=== PATIENT | male | born 1960 | race Caucasian/White ===

== ENCOUNTER 2020-03-17 12:41 | Outpatient (REF) | payer BC, SELFPAY ==
[2020-03-17 14:02] LABS: Calculated LDL 114 mg/dL (<100); Cholesterol 184 mg/dL (<200); HDL Cholesterol 58 mg/dL (40-60); Triglyceride 63 mg/dL (<150)
== END 2020-03-17 13:01 ==
LOC: NCHCN 12:41
PROVIDERS: PCP Internal Medicine; Visit Provider Internal Medicine
DX: Z00.00 Encounter for general adult medical examination without abnormal findings (principal); Z13.220 Encounter for screening for lipoid disorders
CPT/HCPCS: 80061

== ENCOUNTER 2020-05-16 15:16 | Outpatient (REF) | payer BC, SELFPAY ==
[2020-05-17 12:00] LABS: COVID-19 RT-PCR UVMMC Result Negative (Negative)
== END 2020-05-16 15:17 | disposition home or self-care (01) ==
LOC: NCHCN 15:16
PROVIDERS: PCP Internal Medicine; Visit Provider Internal Medicine
DX: Z20.822 Contact with and (suspected) exposure to COVID-19 (principal)
CPT/HCPCS: U0003

== ENCOUNTER 2020-05-28 14:06 | Outpatient (REF) | payer BC, SELFPAY ==
[2020-05-30 12:32] LABS: COVID-19 RT-PCR UVMMC Result Negative (Negative)
== END 2020-05-28 14:07 | disposition home or self-care (01) ==
LOC: NCHCN 14:06
PROVIDERS: PCP Internal Medicine; Visit Provider Internal Medicine
DX: Z20.822 Contact with and (suspected) exposure to COVID-19 (principal)
CPT/HCPCS: U0003

== ENCOUNTER 2020-06-09 14:47 | Outpatient (REF) | payer BC, SELFPAY ==
[2020-06-09 21:43] LABS: Abs Immature Grans 0.03 10^3/uL (0.0-0.06); Absolute Basophil Count 0.03 10^3/uL (0.0-0.2); Absolute Eosinophil Count 0.15 10^3/uL (0.0-0.7); Absolute Lymphocyte Count 1.34 10^3/uL (1.2-3.4); Absolute Monocyte Count 0.61 10^3/uL (0.1-0.8); Absolute Neutrophil Count 4.35 10^3/uL (1.2-6.7); Basophils % 0.5; Eosinophils % 2.3; HCT 47.4 % (40.0-50.0); HGB 15.5 g/dL (13.5-17.5); Immature Grans % 0.5; Lymphocytes % 20.6; MCH 29.8 pg (27.0-33.0); MCHC 32.7 % (32.0-36.0); MPV 9.5 fL (8.0-11.0); Monocytes % 9.4; Neutrophils % 66.7; Nucleated RBC 0 %; Platelet Count 249 10^3/uL (130-400); RBC 5.21 10^6/uL (4.36-5.78); RDW 12.3 % (11.8-14.1); RDW-SD 41.1 fL; WBC 6.51 10^3/uL (4.4-10.8)
[2020-06-09 21:51] LABS: ESR 5 mm//hr (0-20)
[2020-06-09 21:52] LABS: ALT 32 U/L (16-63); AST 20 U/L (15-37); Albumin 4.1 g/dL (3.4-5.0); Alkaline Phosphatase 85 U/L (46-116); Anion Gap 9.2 mmol/L (3-11); BUN 19 mg/dL (7-18); Bilirubin, Total 0.4 mg/dL (0.2-1.0); CO2 26.8 mmol/L (21.0-32.0); CREATININE 1.1 mg/dL (0.70-1.30); Chloride 104 mmol/L (98-107); Glucose 93 mg/dL (74-106); Potassium 4.4 mmol/L (3.5-5.1); Sodium 140 mmol/L (136-145); Total Protein 7.1 g/dL (6.4-8.2)
[2020-06-09 22:03] LABS: LDH 165 U/L (85-227)
== END 2020-06-09 14:48 | disposition home or self-care (01) ==
LOC: NCHCN 14:47
PROVIDERS: PCP Internal Medicine; Visit Provider Internal Medicine
DX: R22.9 Localized swelling, mass and lump, unspecified (principal)
CPT/HCPCS: 80053; 85652; 83615; 85025

== ENCOUNTER 2020-10-16 08:31 | Outpatient (REF) | payer BC, SELFPAY ==
[2020-10-17 10:35] LABS: COVID-19 RT-PCR UVMMC Result Negative (Negative)
== END 2020-10-16 08:32 | disposition home or self-care (01) ==
LOC: NCHCN 08:31
PROVIDERS: PCP Internal Medicine; Visit Provider Family Medicine
DX: Z20.822 Contact with and (suspected) exposure to COVID-19 (principal)
CPT/HCPCS: U0003

== ENCOUNTER 2020-12-24 02:05 | Outpatient (CLI) | payer BC, SELFPAY ==
[2020-12-24 10:12] LABS: Source Nasal/Nares
[2020-12-24 13:54] LABS: COVID-19 PCR Negative (Negative)
== END 2020-12-24 02:06 | disposition home or self-care (01) ==
LOC: LBO 02:05
PROVIDERS: PCP Family Medicine; Visit Provider Surgery
DX: Z20.822 Contact with and (suspected) exposure to COVID-19 (principal); Z01.818 Encounter for other preprocedural examination
CPT/HCPCS: 87635

== ENCOUNTER 2020-12-26 09:56 | Day surgery (SDC) | payer BC, SELFPAY ==
--- NOTE | 2020-12-25 13:32 | W.COLOREPORT ---
Colonoscopy Report Date of procedure: 12/26/20 Pre-op diagnosis general: +fam hx of CRC Post-op diagnosis procedure note: other (diverticula) Surgeon: Keiry Soto Anesthesia Type: General:No Airway Pathology: none sent Complications: None Disposition: same day Prep: Miralax/Dulcolax Retraction Time: 8 mins Procedure Description: After informed consent was obtained the patient was taken to the procedure room and placed in a left decubitous position. Monitors were applied and a time out was done. The patients name, date of , procedure, allergies to medications and metal in their body was reviewed. The patient was then sedated. Once sedated and comfortable a rectal exam was done. External exam was normal. Internal exam revealed a normal sphincter tone and no palpable masses. The scope was then introduced and retrofelexed. internal hemorrhoids were identified. The scope was then advanced to the cecum difficulty. The TI and appendiceal orifice were identified. The prep was adequate- the jacome were still coated w/ stool. This was extensively lavaged, but lesions <5mm could have been missed. The scope was then slowly retracted over 8 minutes back into the rectum. There are no polyp or AVM's. There are a few diverticula noted in the sigmoid colon. There are no signs of active infection or bleeding. No polyps are visulized today. The scope was removed and the patient was woken up and taken back to Same day surgery in stable condition. The patient tolerated the procedure well and there were no immediate complications. Follow up: The patient should follow up in 5 years unless they develop changes in bowel habits or other new gastrointestinal complaints.
--- NOTE | 2020-12-25 13:33 | PDOC.DSDIS_ITS ---
Discharge Plan Disposition Patient Disposition: HOME Condition: Good Discharge Details Reason For Visit: colon scope Attending Provider: Keiry Soto Primary Care Provider: Nikhil Burris Home Meds and New Rx's Prescriptions: Discontinued bisacodyl [Dulcolax (bisacodyl)] 5 mg tablet,delayed release (DR/EC) 5 mg PO ONCE Qty: 4 RF: 0 polyethylene glycol 3350 17 gram/dose powder 238 g PO ONCE Qty: 238 RF: 0 Discharge Instructions Additional Instructions: DSU Colonoscopy Post- Op Instructions Instructions for Everyone who is given Anesthesia: For your safety, please do the following for the next twenty-four (24) hours: *Do Not operate a motor vehicle (car, truck, motorcycle, etc.) *Do Not drink alcoholic beverages or use any recreational drugs for the first 24 hours or while taking pain medications. The medications in your body may have a reaction that can be dangerous. *Do Not make any important decisions or sign any important papers. Findings:diverticula- see handout No polyps Follow up:repeat scope in 5 yrs time 1. No lifting over 20 pounds or strenuous activity for the first 24 hours after your procedure. After 24 hours there are no restrictions on your activity but you may feel fatigued for a few days. 2. After you arrive home you may have a light meal and return to your normal diet as you can tolerate it without feeling sick to your stomach. 3. You may have a bloated, gaseous feeling in your belly (abdomen) after a colonoscopy. Passing gas and belching will help. Walking or lying down on your left side with your knees flexed may relieve the discomfort. Call the office at [phone] (Office) or [phone] (Hospital) right away if you notice any of the following: a.Vomiting of blood or ?coffee ground stools?. b.Rectal bleeding 1Tbsp, blood clots or continuous bleeding. c.Severe belly (abdominal) pain. d.A hard distended belly (abdomen) and an inability to pass gas. 4. Please don?t expect to have a normal BM (bowel movement) for 2-3 days after your procedure. 5. If there are questions regarding the findings of your procedure, please contact your doctor 6. If you are unable to contact your doctor with a problem, contact the hospital at [phone]. 7. Continue all your regular medications unless directed otherwise. I understand the above instructions and have no questions. Signature of Patient or Adult Escort Name of Responsible Adult Escort Signature of Nurse Date/Time Activity:: see above Diet:: see above Discharge Orders Discharge Orders: Discharge Order (Routine); Ordered 12/25/20 Ordered By: Keiry Soto DS: Diagnosis Discharge Diagnosis (1) Family history of colon cancer in father: Status: Inactive
[2020-12-26 10:22] VITALS: BP 139/86; PULSE 71; RESP 16; TEMP 36.4; O2SAT 100
--- NOTE | 2020-12-26 10:37 | W.ANESPRE ---
General Info Date of Service Date Performed: 12/26/20 Height: 5 ft 9 in Weight: 91.6 kg Body Mass Index (BMI): 29.8 Surgical Procedure: Operation Date: 12/26/20 10:50 Proposed Procedures Side Surgeon p Colonoscopy Keiry Soto, Meds Allergies and Home Medications Allergies Allergy/AdvReac Type Severity Reaction Status Date / Time sulfamethoxazole Allergy Unknown facial Unverified 12/26/20 10:30 [From ] swelling trimethoprim [From ] Allergy Unknown facial Unverified 12/26/20 10:30 swelling Home Medication Medication Instructions Recorded bisacodyl 5 mg tablet,delayed 5 mg PO ONCE #4 tab 12/11/20 release polyethylene glycol 3350 17 238 g PO ONCE #238 g 12/11/20 gram/dose oral powder Current Visit Medications: Current Medications Generic Name Dose Route Start Last Admin Trade Name Freq PRN Reason Stop Dose Admin Hyoscyamine Sulfate 0.125 mg 12/25/20 13:32 Hyoscyamine 0.125 Mg Sl/Oral/Chew SL DIRECTED PRN Ringer's Solution 1,000 mls @ 80 mls/hr 12/26/20 06:00 IV 01/24/21 23:59 [facility] IV Miscellaneous Supplies 1 each 12/26/20 06:00 Iv Access IV 01/24/21 23:59 DIRECTED SADIQ Ondansetron HCl 4 mg 12/25/20 13:32 Ondansetron 4 Mg/2 Ml Vial IVP Q4H PRN PRN Nausea / Vomiting Sodium Chloride 0 ml 12/26/20 06:00 Normal Saline Flush 10 Ml Syr IV 01/24/21 23:59 PRN PRN Sodium Chloride 0 ml 12/26/20 06:00 Normal Saline 10 Ml Vial IJ 01/24/21 23:59 DIRECTED PRN Sterile Water 0 ml 12/26/20 06:00 Water,Injection,Sterile 10 Ml Vial IJ 01/24/21 23:59 DIRECTED PRN PFSH Medical History Medical History Axillary mass Elbow pain, left Family history of colon cancer in father stage 3 History of exposure to infectious disease Obesity Tinnitus Surgical History Surgical History History of colonoscopy (~12/28/13) Tobacco Smoking/Tobacco Use Status: Never Alcohol Alcohol Intake: current Alcohol intake frequency: a few times a month Substance Use Substance use: Never Substance use type: does not use Vital Signs and Lab Results Vital Signs Most Recent Vital Signs in EMR: Most Recent Vital Signs Temp Pulse Resp BP Pulse Ox 36.4 C L 71 16 139/86 100 12/26/20 10:22 12/26/20 10:22 12/26/20 10:22 12/26/20 10:22 12/26/20 10:22 Lab Results Blood Type / Crossmatch: No Data to Display Complete Blood Count: No Data to Display Complete Metabolic Panel: No Data to Display Liver Function Panel: No Data to Display Coagulation Panel: No Data to Display Cardiac Panel: No Data to Display Arterial Blood Gas: No Data to Display Venous Blood Gas: No Data to Display Pancreas Panel: No Data to Display Thyroid Panel: No Data to Display Infectious Disease: Coronavirus (COVID-19)(PCR) Negative (Negative) 12/24/20 08:48 12/24/20 Coronavirus 2019 Source Nasal/Nares 12/24/20 08:48 12/24/20 Blood Cultures: No Data to Display Toxicology Panel: No Data to Display Anesthesia Assessment and Plan Anesthesia History Personal History: No History of Anesthesia Complications Family History: No Family History of Anesthesia Complications Exercise Tolerance Exercise Tolerance: Metabolic Equivalents>4 Pertinent Negatives Pertinent Negatives: No Symptoms of GERD, No Major Cardiovascular Symptoms or Complaints, No Major Pulmonary Symptoms or Complaints and No History of CVA/TIA Cardiac & Pulmonary Exam Cardiac Exam: Normal S1/S2 Heart Sounds Pulmonary Exam: Clear Bilateral Breath Sounds Airway Exam Known Difficult Airway: No Mallampati Class: 2 Mouth Opening: Normal (> 3cm) Thyromental Distance: Greater than 3 cm Neck Range of Motion: Full ROM Neck Circumference: Normal Teeth Condition: Normal Dentition ASA Classification ASA Score: ASA 1 Emergency Case?: No NPO Status NPO Status: NPO Clears >2 hours, Solids >8 hours Anesthesia Plan Resuscitation Status: Full Code Anesthesia Technique: General Anesthesia Airway Planned: Natural Airway Monitors Used: Standard Monitors
[2020-12-26] MEDS: Lactated Ringers 1,000 ML 80 ML IV (10:40)
[2020-12-26 10:41] VITALS: BMI 29.8
[2020-12-26 11:24] VITALS: BP 105/83; PULSE 80; RESP 18; TEMP 36.6; O2SAT 95
[2020-12-26 11:50] VITALS: BP 136/94; PULSE 64; RESP 16; TEMP 36.5; O2SAT 96
--- NOTE | 2020-12-26 12:04 | W.ANESPOSTOP ---
Postoperative Evaluation Date, Time and Location Date Performed: 12/26/20 Time Performed: 11:50 Patient Location: Day Surgery Unit Vital Signs Most Recent Imported Vital Signs: Most Recent Vital Signs Temp Pulse Resp BP Pulse Ox 36.5 C 64 16 136/94 H 96 12/26/20 11:50 12/26/20 11:50 12/26/20 11:50 12/26/20 11:50 12/26/20 11:50 Pain Score Most Recent Pain Score: Most Recent Pain Score Pain Level 0 12/26/20 11:50 Assessment Mental Status: Awake (Alert & Oriented to Patient Baseline) Airway and Respiratory Function: Patent airway with normal (patient baseline) respiratory exam Cardiovascular Function: Hemodynamically Stable Hydration Status: Adequately Hydrated Nausea & Vomiting: No Nausea or Vomiting Pain: Pt. Denies Any Pain Peripheral Nerve Block: Patient did not receive a nerve block
== END 2020-12-26 12:34 | disposition home or self-care (01) ==
PROVIDERS: PCP Family Medicine; Visit Provider Surgery
PROC: 0DJD8ZZ Inspection of Lower Intestinal Tract, Via Natural or Artificial Opening Endoscopic (ICD-10-PCS; CPT 45378; principal; 2020-12-26 10:45)
DX: Z12.11 Encounter for screening for malignant neoplasm of colon (principal); Z80.0 Family history of malignant neoplasm of digestive organs; K57.30 Diverticulosis of large intestine without perforation or abscess without bleeding
CPT/HCPCS: 45378; J2001

== ENCOUNTER 2022-10-04 10:15 | Outpatient (REF) | payer BC, SELFPAY ==
[2022-10-04 15:49] LABS: Anion Gap 9.9 mmol/L (3-11); BUN 13 mg/dL (7-18); CO2 29.1 mmol/L (21.0-32.0); CREATININE 1.3 mg/dL (0.70-1.30); Calcium 9.8 mg/dL (8.5-10.1); Chloride 104 mmol/L (98-107); Estimated GFR 62.89 (mL/min/1.73m2); Glucose 106 mg/dL (74-106); Potassium 4.9 mmol/L (3.5-5.1); Sodium 143 mmol/L (136-145)
[2022-10-05 10:20] LABS: Hepatitis C Ab w Rflx HCV PCR Negative (Negative)
[2022-10-05 10:27] LABS: HIV-1/2 Ag & Ab Screen Negative (Negative)
== END 2022-10-04 10:16 | disposition home or self-care (01) ==
LOC: NCHCN 10:15
PROVIDERS: PCP Family Medicine; Visit Provider Family Medicine
DX: Z00.00 Encounter for general adult medical examination without abnormal findings (principal); E66.9 Obesity, unspecified; Z11.4 Encounter for screening for human immunodeficiency virus [HIV]; Z11.59 Encounter for screening for other viral diseases
CPT/HCPCS: 80048; 86803; 87389

== ENCOUNTER 2023-10-12 20:51 | Outpatient (REF) | payer BC, SELFPAY ==
[2023-10-12 15:20] LABS: Anion Gap 12.3 mmol/L (3-11); BUN 18 mg/dL (7-18); CO2 23.7 mmol/L (21.0-32.0); CREATININE 1.1 mg/dL (0.70-1.30); Calcium 9.4 mg/dL (8.5-10.1); Calculated LDL 98 mg/dL (<100); Chloride 103 mmol/L (98-107); Cholesterol 173 mg/dL (<200); Estimated GFR 76.37 (mL/min/1.73m2); Glucose 104 mg/dL (74-106); HDL Cholesterol 59 mg/dL (40-60); Potassium 4.2 mmol/L (3.5-5.1); Sodium 139 mmol/L (136-145); Triglyceride 80 mg/dL (<150)
--- OUTSIDE RECORDS SUMMARY | 2023-10-12 20:53 | XMS_ITS | Clinical Summary ---
Author Organization [facility] Address [address] [place] [address] Care Team Providers Care Sonoscope Operator Name Role Phone Gregory Cates MD Primary Care Provider Allergies Active Allergy Reactions Criticality Noted Date Comments Sulfamethoprim Swelling 06/02/2017 Medications Medication Sig Dispensed Refills Start Date End Date Status ibuprofen (MOTRIN) 200 mg tablet Take 200 mg by mouth every 6 hours. Active Encounters Date Type Department Care Team Description 10/12/2023 Lab Requisition [facility] Pathology & Laboratory Medicine - [facility] [address] [place] [address] Outr Resulting Lab, Provider from Last 3 Months Surgical History Surgery Date Site/Laterality Comments BREAST SURGERY Social History Tobacco Use Types Packs/Day Years Used Date Smoking Tobacco: Every Day Tobacco Cessation:Ready to Q uit: No Alcohol Use Standard Drinks/Week Comments Yes 0 (1 standard drink = 0.6 oz pur e alcohol) Interpersonal Safety Answer Date Record ed Physically Hurt Never 10/08/2019 Verbally Threaten Not on file 10/08/2019 Sex and Gender Information Value Date Recorded Sex Assigned at Not on file Gender Identity Not on file Sexual Orientation Not on file Obstetrics History Plan of Treatment Health Maintenance Due Date Last Done Comments Pneumococcal Immunization (1 of 2 - PCV) 1968 RSV Immunization ( o r 60+ Years) (1 - 1-dose 60+ series) 2022 COVID-19 Vaccine ( - 2022-24 season) 2022 Hepatitis C Screen Completed 10/04/2022 Procedures Procedure Name Priority Date/Time Associated Diagnosis Comments HEPATITIS C AB W REFLEX TO HCV RNA BY PCR Routine 10/04/2022 8:15 EDT from Last 3 Months or Most Recently Relevant to Health Maintenance Results * HEPATITIS C AB W REFLEX TO HCV RNA BY PCR (10/04/2022 8:15 EDT) Hep C Antibody Negative Negative 10/05/2022 10:14 EDT [facility] Blood VENOUS BLOOD / Unknown 10/04/2022 8:15 EDT 10/04/2022 21:24 EDT Provider Outr Resulting Lab CHEMISTRY & BLOOD GAS ORDERABLES [facility] [address] [place] [address] from Last 3 Months or Most Recently Relevant to Health Maintenance Care Teams Sonoscope Operator Relationship Specialty Start Date End Date Gregory Cates MD [address] [place], [place] [id number] PCP - General 07/30/15
--- OUTSIDE RECORDS SUMMARY | 2023-10-12 20:53 | XMS_ITS | Data Portability ---
Author Organization [place] - [employer], [facility], [facility] Address [address] [place] [address] Care Team Providers Care Digital Media Associate Name Role Phone NICA MAURICIO Referring Provider [phone] Assessment No assessment recorded. Plan of Treatment Reminders Order Date Submit Date Provider Last Modified By Organization Details Last Modified Time Details Appointments None recorded. Lab culture, aerobic 2022 023 [facility], [address] [place], [address], 11:12:51 Referral None recorded. Procedures None recorded. Surgeries None recorded. Imaging None recorded. Medication Orders cephalexin 500 mg capsule 2022 023 [id number], [address], 18:00:51 Patient TargetsNo targets recorded. Patient Instructions Encounter Date Encounter Id Patient Instructions Last Modified By Organization Details Last Modified Time 06/11/2022 [id number] Will call with culture. [email or web address] Not available 06/11/2022 18:01:02 Patient understands instructions and will seek medical attention if symptoms worsen as directed. [email or web address] Not available 06/11/2022 18:01:06 Reason for Referral None Reported. Results Created Date Observation Date Name Description Value Unit Range Abnormal Flag LastModifiedBy Organization Detail LastModifiedTime 06/12/19 23 06/15/2022 CULTU RE, AEROB IC BACTE JACOB culture, aerobic bacteria SEE NOTE abnormal Not Available [facility] [address], [place], [address], 06/15/2022 11:12:50 Result Notes None recorded. Procedures Surgical History Date Name Laterality Status Provider Name and Address Organization Details Recorded Time 3 Foreign Body Removal completed Mauricio Farley, DO [address] [facility] [address], [place], [address], [facility], [facility] 06/11/2022 17:58:55 Imaging Results None recorded. Procedure Notes None recorded. Medical Equipment None Reported. Allergies Allergen ID Allergen Name Allergen Category Reaction Reaction Severity Criticality Documentation Date Start Date Code Code System Note Provider Name and Address Organization Details Recorded Time [id number] sulfameth oxazole / trimethop rim medicatio n swelling severe Not available 06/11/2022 26602 RxNorm Olivia riggs [facility], [facility] 17:35:26 Medications Name Sig Start Date Stop Date Status Note LastModified by Organization Details LastModified Time cephalexin 500 mg capsule Take 1 capsule every 8 hours by oral route for 5 days. 023 active Not Available Not Available Not Avai lable Vitals Date Recorded Body temperature Heart rate Oxygen saturation Oxygen saturation in Arterial blood by Pulse oximetry Body height Body mass index (BMI) Body weight Systolic blood pressure Diastolic blood pressure Provider Name and Address Organization Details Last Updated DateTime 3 97.5 [degF] 79 /min 97 % 97 % 175.26 cm 30.9 kg/m2 56609.8 1 g 150 mm[Hg] 84 mm[Hg] Olivia Whatley [facility], [facility] 17:35:06 Social History Question Answer Notes LastModified by Organizat ion Details LastModified Time Tobacco Smoking Status Never Smoker Olivia riggs [facility], [facility] 06/11/2022 17:27:55 Do You Have An Advance Directive? Yes Information not available 06/11/2022 What Is Your Level Of Alcohol Consumption? Moderate Information not available 06/11/2022 Is Blood Transfusion Acceptable In An Emergency? Yes Information not available 06/11/2022 What Is Your Level Of Caffeine Consumption? Moderate Information not available 06/11/2022 What Type Of Diet Are You Following? REGULAR Information not available 06/11/2022 What Is The Highest Grade Or Level Of School You Have Completed Or The Highest Degree You Have Received? [id number] Information not available 06/11/2022 What Is Your Relationship Status? Information not available 06/11/2022 Are You Sexually Active? Yes Information not available 06/11/2022 Do You Or Have You Ever Used Smokeless Tobacco? Never Used Smokeless Tobacco Information not available 06/11/2022 Sex: Male Functional Status Question Answer Note LastModified by Organization D etails LastModified Time What is your exercise level? Moderate Information not available 06/11/2022 Mental Status None recorded. Family History Nothing Reported. Medical History No medical history recorded. Past Encounters Encounter ID Performer Location Encounter Start Date Encounter Closed Date Diagnosis/Indication Diagnosis SNOMED-CT Code [id number] DO JUDITH Batista [facility] [address] [place] [id number] 06/11/2022 17:18:20 06/11/2022 18:15:34 Foreign body in skin of foot [id number] Abscess of skin and/or subcutaneous tissue [id number] Health Concerns Section Related Observation LastModified by Organization Detai ls LastModified Time None Recorded Concern Status LastModified by Organization Details LastModified Time None Recorded Advance Directives Directive Y: Payers Encounter Date Sequence Insurance Name Policy Number Policy Campos Covered Member ID Campos Member ID Guarantor Name 06/11/2022 1 [place] [facility] [id number] [facility] [id number] [facility] Notes Date Note Type Note Provider Name and Address Organization Details Recorded Time 06/11/2022 text/html HPI Notes: Abscess/Cellulitis Reported by patient. Reason for visit: acute complaint Location: left foot (sole under 4th distal metatarsal) Quality: bulging (White blister) Severity: mild Duration: constant Onset/Timing: gradual; several days ago Context: no recent travel; no recent injury; no recent stings/bites Alleviating factors: nothing Aggravating factors: nothing Associated Symptoms: no fever; no chills; no discharge Express Covid Questions Are you feeling sick today? Includes any NEW symptom(s) among those listed previously that are NOT due to another health problem No Have you tested positive for COVID-19 in the past 10 days? No In the last 10 days, have you been exposed to someone who has tested positive for COVID-19? No Imported from [facility] on 06/11/2022 Mauricio Farley, DO [address] [facility] [address], [place], [address], [facility] - [facility], [facility] 06/11/2022 18:02:38
--- OUTSIDE RECORDS SUMMARY | 2023-10-12 20:53 | XMS_ITS | Referral Summary ---
Author Organization [facility] Address [address] [place] [address] Care Team Providers Care Counterintelligence Specialist Name Role Phone Gregory Cates MD Primary Care Provider [phone] Encounters Date Type Department Care Team Description 10/12/2023 Lab Requisition [facility] Pathology & Laboratory Medicine - [facility] [address] [place] [address] Outr Resulting Lab, Provider from Last 3 Months Allergies Active Allergy Reactions Criticality Noted Date Comments Sulfamethoprim Swelling 06/02/2017 Medications Medication Sig Dispensed Refills Start Date End Date Status ibuprofen (MOTRIN) 200 mg tablet Take 200 mg by mouth every 6 hours. Active Social History Tobacco Use Types Packs/Day Years [...] on file Sexual Orientation Not on file Plan of Treatment Not on file Procedures Procedure Name Priority Date/Time Associated Diagnosis Comments HEPATITIS C AB W REFLEX TO HCV RNA BY PCR Routine 10/04/2022 8:15 EDT from Last 3 Months or Most Recently Relevant to Health Maintenance Results * HEPATITIS C AB W REFLEX TO HCV RNA BY PCR (10/04/2022 8:15 EDT) Hep C Antibody Negative Negative 10/05/2022 10:14 EDT [facility] Blood VENOUS BLOOD / Unknown 10/04/2022 8:15 EDT 10/04/2022 21:24 EDT Provider Outr Resulting Lab CHEMISTRY & BLOOD GAS ORDERABLES [facility] [address] [place] [address] from Last 3 Months or Most Recently Relevant to Health Maintenance Care Teams Counterintelligence Specialist Relationship Specialty Start Date End Date Gregory Cates MD [address] [place] [address] PCP - General 07/30/15
--- OUTSIDE RECORDS SUMMARY | 2023-10-12 20:53 | XMS_ITS | Encounter Summary ---
Author Organization [facility] Address [address] [place] [address] Care Team Providers Care Predictive Maintenance Specialist Name Role Phone Gregory Cates MD Primary Care Provider [phone] Encounter Details Date Type Department Care Team (Late st Contact Info) Description 10/04/2022 Lab Requisition [facility] Pathology & Laboratory Medicine - [facility] [address] [place], [place] [address] Outr Resulting Lab, Provider Social History Tobacco Use Types Packs/Day Years Used Date Smoking Tobacco: Every Day Alcohol Use Standard Drinks/Week Comments Yes 0 (1 standard drink = 0.6 oz pur e alcohol) Interpersonal Safety Answer Date Record ed Physically Hurt Never 10/08/2019 Verbally Threaten Not on file 10/08/2019 Sex and Gender Information Value Date Recorded Sex Assigned at Not on file Gender Identity Not on file Sexual Orientation Not on file documented as of this encounter Plan of Treatment Not on file documented as of this encounter Procedures Procedure Name Priority Date/Time Associated Diagnosis Comments HIV 1/2 ANTIGEN AND ANTIBODY, 4TH GENERATION Routine 10/04/2022 8:15 EDT documented in this encounter Results * HIV 1/2 ANTIGEN AND ANTIBODY, 4TH GENERATION (10/04/2022 8:15 EDT) HIV 1 and 2 Antibody/p24 Antigen, 4th Generation Negative Negative 10/05/2022 10:22 EDT [facility] Comment:If acute HIV-1 infec tion is suspected in a high risk patient, submit plasma specimen for HIV-1 RNA quantitation test. Blood VENOUS BLOOD / Unknown 10/04/2022 8:15 EDT 10/04/2022 21:24 EDT Narrative [facility] - 10/05/2022 10:22 EDT Fourth Generation assay performed on the Siemens CTMGaur XPT. Provider Outr Resulting Lab IMMUNOLOGY A ND SEROLOGY ORDERABLES Performing Organization Address City/State/[facility] Co de Phone Number [facility] [address] [place] [address] documented in this encounter Visit Diagnoses Not on filedocumented in this encounter Care Teams Predictive Maintenance Specialist Relationship Specialty Start Date End Date Gregory Cates MD [address] [place], [place] [phone] PCP - General 07/30/15 documented as of this encounter
--- OUTSIDE RECORDS SUMMARY | 2023-10-12 20:53 | XMS_ITS | Encounter Summary ---
Author Organization [facility] Address [address] [place] [address] Care Team Providers Care Mechanical Design Engineer Facilities Name Role Phone Gregory Cates MD Primary Care Provider [phone] Encounter Details Date Type Department Care Team (Late st Contact Info) Description 2020 Lab Requisition [facility] Pathology & Laboratory Medicine - [address] [id number] Outr Resulting Lab, Provider Social History Tobacco [...] Procedure Name Priority Date/Time Associated Diagnosis Comments ZZCOVID-19 TEST [facility] PCR Today 2020 10:30 EST COVID-19 TESTING Routine 2020 10:3 0 EST documented in this encounter Results * COVID-19 TEST [facility] PCR (2020 10:30 EST) Swab ENTIRE NASOPHARYNX / Unknown 2020 10:30 EST 2020 21:04 EST Provider Outr Resulting Lab MICROBIOLOGY - GENERAL ORDERABLES [facility] [address] [place] [address] * COVID-19 TESTING (2020 10:30 EST) COVID-19 rt-PCR Result Negative Negative 05/17/2020 11:54 EST [facility] Comment: This test has not been FDA cleared or approved. This test has been authorized by FDA under an EUA for use by authorized laboratories. This test has been authorized only for detection of nucleic acid from 2019-nCoV, not for any other viruses or pathogens. This test is only authorized for the duration of the declaration that circumstances exist justifying the authorization of emergency use of in vitro diagnostic tests for detection and/or diagnosis of 2019-nCoV under section 564(b)(1) of Act, 21 U.S.C ?? 360bbb-3(b) (1), unless the authorization is terminated or revoked sooner. Negative results do not preclude 2019-nCoV infection and should not be used as the sole basis for treatment or other patient management decisions. Negative results must be combined with clinical observations, patient history, and epidemiological information. Testing was performed using the segundo SARS-CoV-2 assay ([employer] on the Segundo 6800 System Performing Lab [facility] [address] [facility] Lab 05/17/2020 11:54 EST [facility] Swab 2020 10:3 0 EST 2020 21:04 EST Provider Outr Resulting Lab MICROBIOLOGY - GENERAL ORDERABLES [facility] [address] [place] [address] documented in this encounter Visit Diagnoses Not on filedocumented in this encounter Care Teams Mechanical Design Engineer Facilities Relationship Specialty Start Date End Date Gregory Cates MD [address] [place], [place] [id number] PCP - General 07/30/15 documented as of this encounter
--- OUTSIDE RECORDS SUMMARY | 2023-10-12 20:53 | XMS_ITS | Encounter Summary ---
Author Organization [facility] Address [address] [place] [address] Care Team Providers Care Clinical Support Manager Name Role Phone Gregory Cates MD Primary Care Provider [phone] Encounter Details Date Type Department Care Team (Late st Contact Info) Description 10/12/2023 Lab Requisition [facility] Pathology & Laboratory Medicine - [facility] [address] [place] [address] Outr Resulting Lab, Provider Social History Tobacco [...] as of this encounter Plan of Treatment Scheduled Orders Name Type Priority Associated Diagnoses Orde r Schedule PSA TOTAL, DIAGNOSTIC Lab Routine Ord ered: 10/12/2023 documented as of this encounter Visit Diagnoses Not on filedocumented in this encounter Care Teams Clinical Support Manager Relationship Specialty Start Date End Date Gregory Cates MD [address] [place] [address] PCP - General 07/30/15 documented as of this encounter
--- OUTSIDE RECORDS SUMMARY | 2023-10-12 20:53 | XMS_ITS | Encounter Summary ---
Author Organization [facility] Address [address] [place] [address] Care Team Providers Care Electronic Engineering Technician Name Role Phone Gregory Cates MD Primary Care Provider [phone] Encounter Details Date Type Department Care Team (Late st Contact Info) Description 10/04/2022 Lab Requisition [facility] Pathology & Laboratory Medicine - [address] [phone] Outr Resulting Lab, Provider Social History Tobacco [...] RNA BY PCR Routine 10/04/2022 8:15 EDT documented in this encounter Results * HEPATITIS C AB W REFLEX TO HCV RNA BY PCR (10/04/2022 8:15 EDT) Hep C Antibody Negative Negative 10/05/2022 10:14 EDT [facility] Blood VENOUS BLOOD / Unknown 10/04/2022 8:15 EDT 10/04/2022 21:24 EDT Provider Outr Resulting Lab CHEMISTRY & BLOOD GAS ORDERABLES [facility] [address] [place] [address] documented in this encounter Visit Diagnoses Not on filedocumented in this encounter Care Teams Electronic Engineering Technician Relationship Specialty Start Date End Date Gregory Cates MD [address] [place] [address] PCP - General 07/30/15 documented as of this encounter
--- OUTSIDE RECORDS SUMMARY | 2023-10-12 20:53 | XMS_ITS | Encounter Summary ---
Author Organization [facility] Address [address] [place] [address] Care Team Providers Care Private Eye Name Role Phone Gregory Cates MD Primary Care Provider [phone] Reason for Visit * Reason Comments New Patient Visit Tinnitus * Consult (Routine) - Closed Specialty Diagnoses / Procedures Referred By Arelis jade Referred To Contact Otolaryngology Diagnoses Tinnitus Gregory Cates MD [address] [place] [address] Referral ID Status Reason Start Date Expiration Date V isits Requested Visits Authorized [id number] Closed Specialty Services Required 1 1 Encounter Details Date Type Department Care Team (Late st Contact Info) Description 06/02/2017 13:35 EDT Office Visit [facility] ENT- [address] [address] Narcisa Valadez MD [address] [place] [address], [address] [place] [id number] Tinnitus of both ears (Primary Dx); Sensorineural hearing loss (SNHL) of both ears Social History Tobacco Use Types Packs/Day Years Used Date Smoking Tobacco: Every Day Tobacco Cessation:Ready to Q uit: No Alcohol Use Standard Drinks/Week Comments Yes 0 (1 standard drink = 0.6 oz pur e alcohol) Sex and Gender Information Value Date Recorded Sex Assigned at Not on file Gender Identity Not on file Sexual Orientation Not on file documented as of this encounter Progress Notes * Narcisa Valadez MD - 06/02/2017 1335 EDT Mr Philippe is a 57-year-old gentleman who is here today in consultation from Dr Gregory Cates for tinnitus and hearing loss. He has noted that he has had tinnitus for 5 years. It became significantly worse in January. It is constant. It is in both ears. Initially it was a pulsing sensation, butnow is constant, high-pitched sound. He has some decreased hearing, which is worse when there is background noise. He sometimes finds that he feels like he is reading lips. He denies any dizziness orvertigo. He has no history of head trauma. He has not had any recent change in his medications. He has had no increased stress or fatigue in his life. He finds that sometimes it is difficult to fall asleep because of the tinnitus in he uses music when he is going to sleep which oftentimes is helpful. 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 He is not exposed to noise currently. PAST MEDICAL HISTORY: He denies other medical problems. PAST SURGERY: Appendectomy. FAMILY HISTORY: Unremarkable. He does not smoke, drinks 1 drink a week. He works as a web development manager. Review of systems was performed and notable for fever, nasal congestion, sore throat and cough. ALLERGIES: He is allergic to SEPTRA. PHYSICAL EXAM: Generally, he is in no distress. He is well groomed. His face reveals symmetric movement and is otherwise normal appearing. His voice is of normal quality. His nose externally is unremarkable. Internally he has normal mucosa. His mouth and oropharynx is within normal limits without lesions. Dentition is unremarkable. His neck reveals no masses or adenopathy. Salivary glands are normal to palpation. His ears including canals, TMs and auricles are within normal limits. An audiogram is done and this reveals a mild high-frequency sensorineural hearing loss at 4000 Hz in both ears. He has good discrimination. ASSESSMENT: Mild sensorineural hearing loss consistent with his noise exposure. He has tinnitus, which is probably also related to this as well. All this was discussed with him. I did not recommend any amplification at this time for his hearing loss. He is already using masking for the tinnitus Destini did not have any other really good suggestions at this point. He will see how things go and return as needed. documented in this encounter Plan of Treatment Scheduled Orders Name Type Priority Associated Diagnoses Orde r Schedule HEARING EVALUATION Audiology Routine Tinnitus of both ears Sensorineural hearing loss (SNHL) of both ears Ordered: 06/02/2017 documented as of this encounter Procedures Procedure Name Priority Date/Time Associated Diagnosis Comments AUDIOGRAM - SCANNED 06/03/2017 11:17 EDT documented in this encounter Results * AUDIOGRAM - SCANNED (06/03/2017 11:17 EDT) 06/03/2017 11:1 7 EDT Scan 2 [facility] PROCEDURE/MINOR ALMAZ GICAL ORDERABLES documented in this encounter Visit Diagnoses Diagnosis Tinnitus of both ears- Primary Unspecified tinnitus Sensorineural hearing loss (SNHL) of both ears documented in this encounter Historical Medications * This list may reflect changes made after this encounter. Medication Sig Dispensed Refills Start Date End Date ibuprofen (MOTRIN) 200 mg tablet Take 200 mg by mouth every 6 hours. added in this encounter Care Teams Private Eye Relationship Specialty Start Date End Date Gregory Cates MD [address] [place] [address] PCP - General 07/30/15 documented as of this encounter
--- OUTSIDE RECORDS SUMMARY | 2023-10-12 20:53 | XMS_ITS | Encounter Summary ---
Author Organization [facility] Address [address] [place] [address] Care Team Providers Care Skip Tender Name Role Phone Gregory Cates MD Primary Care Provider [phone] Encounter Details Date Type Department Care Team (Late st Contact Info) Description 10/16/2020 Lab Requisition [facility] Pathology & Laboratory Medicine - [address] [address] Outr Resulting Lab, Provider Social History Tobacco [...] Comments ZZCOVID-19 TEST [facility] PCR Today 10/16/2020 7:45 EDT COVID-19 TESTING Routine 10/16/2020 7:45 EDT documented in this encounter Results * COVID-19 TEST [facility] PCR (10/16/2020 7:45 EDT) Swab ENTIRE NASOPHARYNX / Unknown 10/16/2020 7:45 EDT 10/16/2020 20:30 EDT Provider Outr Resulting Lab MICROBIOLOGY - GENERAL ORDERABLES [facility] [address] [place] [address] * COVID-19 TESTING (10/16/2020 7:45 EDT) COVID-19 rt-PCR Result Negative Negative 10/17/2020 10:32 EDT [facility] Comment: This test [...] performed using the segundo SARS-CoV-2 assay ([employer] on the Segundo 6800 System Performing Lab [address] [facility] Lab 10/17/2020 10:32 EDT [facility] Swab 10/16/2020 7:45 EDT 10/16/2020 20:30 EDT Provider Outr Resulting Lab MICROBIOLOGY - GENERAL ORDERABLES [facility] [address] [place] [address] documented in this encounter Visit Diagnoses Not on filedocumented in this encounter Care Teams Skip Tender Relationship Specialty Start Date End Date Gregory Cates MD [address] [place], [place] [id number] PCP - General 07/30/15 documented as of this encounter
--- OUTSIDE RECORDS SUMMARY | 2023-10-12 20:53 | XMS_ITS | Encounter Summary ---
Author Organization [facility] Address [address] [place] [address] Care Team Providers Care Electrical Sign Wirer Name Role Phone Gregory Cates MD Primary Care Provider [phone] Encounter Details Date Type Department Care Team (Late st Contact Info) Description 05/29/2020 Lab Requisition [facility] Pathology & Laboratory Medicine - [address] [address] Outr Resulting Lab, Provider Social History Tobacco [...] Comments ZZCOVID-19 TEST [facility] PCR Today 05/28/2020 13:00 EDT COVID-19 TESTING Routine 05/28/2020 13:0 0 EDT documented in this encounter Results * COVID-19 TEST [facility] PCR (05/28/2020 13:00 EDT) Swab ENTIRE NASOPHARYNX / Unknown 05/28/2020 13:00 EDT 05/29/2020 16:04 EDT Provider Outr Resulting Lab MICROBIOLOGY - GENERAL ORDERABLES [facility] [address] [place] [address] * COVID-19 TESTING (05/28/2020 13:00 EDT) COVID-19 rt-PCR Result Negative Negative 05/30/2020 12:27 EDT [facility] [...] clinical observations, patient history, and epidemiological information. This test was developed and its performance characteristics determined by [facility]. It has not been cleared or approved by the US Food and Drug Administration. FDA does not require this test to go through premarket FDA review. This test is used for clinical purposes. It should not be regarded as investigational or for research. This laboratory is certified under the Clinical Laboratory Improvement Amendments (CLIA) as qualified to perform high complexity clinical laboratory testing. This test is based on the [facility] COVID-19 Emergency Use Authorization (EUA) assay, with minor modification as defined by the FDA Performed on the [employer] 7 Flex RT-PCR System. Performing Lab [facility] Lab 05/30/2020 12:27 EDT [facility] Swab 05/28/2020 13:0 0 EDT 05/29/2020 16:04 EDT Provider Outr Resulting Lab MICROBIOLOGY - GENERAL ORDERABLES Performing Organization Address [facility] Co de Phone Number [facility] [address] [place] [address] documented in this encounter Visit Diagnoses Not on filedocumented in this encounter Care Teams Electrical Sign Wirer Relationship Specialty Start Date End Date Gregory Cates MD [address] [place], [place] [id number] PCP - General 07/30/15 documented as of this encounter
[2023-10-12 22:27] LABS: PSA, Screening 1.3 ng/mL (<=4.5)
== END 2023-10-12 20:52 | disposition home or self-care (01) ==
LOC: NCHCN 20:51
PROVIDERS: PCP Family Medicine; Visit Provider Family Medicine
DX: Z00.00 Encounter for general adult medical examination without abnormal findings (principal); E78.5 Hyperlipidemia, unspecified; Z12.5 Encounter for screening for malignant neoplasm of prostate; Z13.228 Encounter for screening for other metabolic disorders
CPT/HCPCS: 80048; 80061; 84153

== ENCOUNTER 2024-10-17 13:21 | Outpatient (CLI) | payer OTHER, SELFPAY ==
[2024-10-17 09:05] LABS: HCT 47.3 % (40.0-50.0); HGB 15.4 g/dL (13.5-17.5); MCH 30.0 pg (27.0-33.0); MCHC 32.6 % (32.0-36.0); MCV 92 fL (80-95); MPV 9.0 fL (8.0-11.0); Platelet Count 209 10^3/uL (130-400); RBC 5.13 10^6/uL (4.36-5.78); RDW 11.9 % (11.8-14.1); RDW-SD 40.8 fL; WBC 5.36 10^3/uL (4.4-10.8)
[2024-10-17 09:14] LABS: Anion Gap 3.8 mmol/L (3-11); BUN 12 mg/dL (7-18); CO2 30.2 mmol/L (21.0-32.0); Calcium 9.1 mg/dL (8.5-10.1); Chloride 106 mmol/L (98-107); Glucose 114 mg/dL (74-106); Potassium 4.6 mmol/L (3.5-5.1); Sodium 140 mmol/L (136-145)
[2024-10-17 11:28] LABS: Cholesterol 155 mg/dL (<200); HDL Cholesterol 51 mg/dL (>or=40)
[2024-10-17 18:06] LABS: PSA, Screening 1.5 ng/mL (<=4.5)
== END 2024-10-17 13:22 | disposition home or self-care (01) ==
LOC: LBO 13:24
PROVIDERS: PCP Family Medicine; Visit Provider Family Medicine
DX: Z12.5 Encounter for screening for malignant neoplasm of prostate; Z00.00 Encounter for general adult medical examination without abnormal findings
CPT/HCPCS: 36415; 80048; 80061; 84153; 85027